=== PATIENT | male | born 1980 ===

== ENCOUNTER 2020-10-13 00:58 | Emergency (ER) | payer SELFPAY ==
[2020-10-13] MEDS ORDERED: TETANUS & DIPHTHERIA TOX,ADULT 0.5 ML VIAL ONE (02:43)
[2020-10-13] MEDS ORDERED: LIDOCAINE 1% MPF 30 ML VIAL ONE (03:17)
[2020-10-13] MEDS ORDERED: LIDOCAINE 1% MPF 5 ML VIAL ONE (03:19)
--- NOTE | 2020-10-13 06:38 | EDPHYS ---
Physician Documentation [facility] Name: Yusuf Butts Age: 40 yrs Sex: Male : 1980 Arrival Date: 10/13/2020 Time: 01:00 Bed 30 Private MD: ED Physician Wilfredo Wilson HPI: 10/13 02:49 This 40 yrs old Male presents to ER via Ambulatory with complaints of Laceration To [facility], Foot Injury. 02:49 The patient has a laceration related to: a puncture wound broken glass, occurred at [facility], and The type of wound is a puncture. The injury was accidental. The laceration(s) is(are) located on the dorsum of right foot. Onset: The symptoms/episode began/occurred last night. Associated signs and symptoms: Pertinent negatives: deformity, dizziness, heavy bleeding, loss of consciousness, numbness distal to injury. Historical: - Allergies: 01:13 No Known Allergies; lp1 - Home Meds: 01:13 None [Active]; lp1 - PMHx: 01:13 None; lp1 - PSHx: 01:13 None; lp1 - Immunization history:: Adult Immunizations up to date, Last tetanus immunization: up to date. - Social history:: Smoking status: Patient denies any tobacco usage or history of. ROS: 02:49 Constitutional: Negative for fever, chills, and weight loss, Eyes: Negative for injury, 7 pain, redness, and discharge, ENT: Negative for injury, pain, and discharge, Neck: Negative for injury, pain, and swelling, Cardiovascular: Negative for chest pain, palpitations, and edema, Respiratory: Negative for shortness of breath, cough, wheezing, and pleuritic chest pain, Abdomen/GI: Negative for abdominal pain, nausea, vomiting, diarrhea, and constipation, Back: Negative for injury and pain, : Negative for injury, bleeding, discharge, and swelling, Neuro: Negative for headache, weakness, numbness, tingling, and seizure, Psych: Negative for depression, anxiety, suicide ideation, homicidal ideation, and hallucinations, Allergy/Immunology: Negative for hives, rash, and allergies, Endocrine: Negative for neck swelling, polydipsia, polyuria, polyphagia, and marked weight changes, Hematologic/Lymphatic: Negative for swollen nodes, abnormal bleeding, and unusual bruising. Exam: 02:49 Constitutional: This is a well developed, well nourished patient who is awake, alert, mh7 and in no acute distress. Head/Face: Normocephalic, atraumatic. Eyes: Pupils equal round and reactive to light, extra-ocular motions intact. Lids and lashes normal. Conjunctiva and sclera are non-icteric and not injected. Cornea within normal limits. Periorbital areas with no swelling, redness, or edema. Neck: Trachea midline, no thyromegaly or masses palpated, and no cervical lymphadenopathy. Supple, full range of motion without nuchal rigidity, or vertebral point tenderness. No Meningismus. Chest/axilla: Normal chest wall appearance and motion. Nontender with no deformity. No lesions are appreciated. Cardiovascular: Regular rate and rhythm with a normal S1 and S2. No gallops, murmurs, or rubs. Normal PMI, no JVD. No pulse deficits. Respiratory: Lungs have equal breath sounds bilaterally, clear to auscultation and percussion. No rales, rhonchi or wheezes noted. No increased work of breathing, no retractions or nasal flaring. Abdomen/GI: Soft, non-tender, with normal bowel sounds. No distension or tympany. No guarding or rebound. No evidence of tenderness throughout. Back: No spinal tenderness. No costovertebral tenderness. Full range of motion. Neuro: Awake and alert, GCS 15, oriented to person, place, time, and situation. Cranial nerves II-XII grossly intact. Motor strength 5/5 in all extremities. Sensory grossly intact. Cerebellar exam normal. Normal gait. Psych: Awake, alert, with orientation to person, place and time. Behavior, mood, and affect are within normal limits. 06:32 Musculoskeletal/extremity: Extremities: noted in the dorsum of right foot: laceration, mh7 ROM: intact in all extremities, Circulation is intact in all extremities. Pulses: are normal with no appreciated deficits, Perfusion: the patient is normally perfused throughout, Perfusion: the extremity is normally perfused throughout, Calf tenderness, is absent, Edema, is not appreciated, Sensation intact. Compartment Syndrome exam of affected extremity: is normal. no pain, no numbness, no tingling, no sensation deficit, no palor, no weak pulses, Joints: All joints appear normal with full range of motion. Tendon exam: 06:33 Musculoskeletal/extremity: Tendon exam: specific tendon testing normal through active mh7 and passive range of motion 06:33 Skin: injury, laceration(s), the wound is approximately 3.0 cm(s), with a depth of 0.5 cm(s), of the dorsum of right foot. Vital Signs: 01:13 BP 140 / 90; Pulse 85; Resp 16; Temp 98.1(TE); Pulse Ox 98% on R/A; Weight 95.25 kg lp1 (R); Height 5 ft. 11 in. (180.34 cm); Pain 1/10; 03:00 BP 135 / 86; Pulse 76; Resp 16; Pulse Ox 100% on R/A; rv 04:00 BP 131 / 88; Pulse 78; Resp 17; Pulse Ox 100% on R/A; rv 06:00 BP 136 / 76; Pulse 71; Resp 16; Pulse Ox 100% on R/A; rv 01:13 Body Mass Index 29.29 (95.25 kg, 180.34 cm) lp1 Laceration: 06:33 Wound Repair of 3.0cm ( 1.2in ) subcutaneous laceration to dorsum of right foot. Distal mh7 neuro/vascular/tendon intact. Anesthesia: Local anesthetic administered with 4 mls of 1% lidocaine. Wound prep: Extensive cleansing with hibiclenz by nurse, Wound irrigation with saline by nurse, Wound explored extensively, Copious irrigation. Skin closed with 7 4-0 Prolene using simple sutures and sterile technique. Dressed with non-adherent dressing. Patient tolerated well. MDM: 06:33 Differential diagnosis: superficial laceration, tendon injury, vascular injury. Data 7 reviewed: vital signs, nurses notes, radiologic studies, plain films. Data interpreted: Pulse oximetry: on room air is 98 %. Interpretation: normal. Counseling: I had a detailed discussion with the patient and/or guardian regarding: the historical points, exam findings, and any diagnostic results supporting the discharge/admit diagnosis, the presence of at least one elevated blood pressure reading (>120/80) during this emergency department visit, radiology results, the need for outpatient follow up, to return to the emergency department if symptoms worsen or persist or if there are any questions or concerns that arise at home. Response to treatment: the patient's symptoms have markedly improved after treatment. 06:37 Patient medically screened. mh7 10/13 01:15 Order name: Foot Right 2 View XRAY lp1 Administered Medications: 02:32 Drug: Tetanus-Diphtheria Toxoid Adult 0.5 ml {[employer] Support Specialist: [employer]. Exp: rv 10/13/2021. Lot #: [id number]. } Route: IM; Site: right deltoid; 07:08 Follow up: Response: No adverse reaction rv Disposition: 10/13/20 06:37 Discharged to Home. Impression: Foot Laceration, Right. - Condition is Stable. - Discharge Instructions: Laceration Care, Adult, [place]. - Prescriptions for Keflex 500 mg Oral Capsule - take 1 capsule by ORAL route every 8 hours for 7 days; 21 capsule. - Medication Reconciliation Form, Thank You Letter, Antibiotic Education, Prescription Opioid Use form. - Follow up: Private Physician; When: 1 - 2 days; Reason: Wound Recheck, Worsening of condition, Recheck today's complaints, Continuance of care, Re-evaluation by your physician. Follow up: Moe Elizalde DPM; When: 1 - 2 days; Reason: Wound Recheck, Worsening of condition, Recheck today's complaints. - Problem is new. - Symptoms have improved. Signatures: Dispatcher [employer] EDMS Deedee Vicotr RN RN lp1 Deepak Sterling RN RN rv Wilfredo Wilson MD MD mh7 Corrections: (The following items were deleted from the chart) 07:08 06:37 10/13/2020 06:37 Discharged to Home. Impression: Foot Laceration, Right. rv Condition is Stable. Forms are Medication Reconciliation Form, Thank You Letter, Antibiotic Education, Prescription Opioid Use. Follow up: Private Physician; When: 1 - 2 days; Reason: Wound Recheck, Worsening of condition, Recheck today's complaints, Continuance of care, Re-evaluation by your physician. Follow up: Moe Elizalde; When: 1 - 2 days; Reason: Wound Recheck, Worsening of condition, Recheck today's complaints. Problem is new. Symptoms have improved. mh7
--- NOTE | 2020-10-13 06:38 | ER ---
Nurse's Notes [facility] Name: Yusuf Butts Age: 40 yrs Sex: Male : 1980 Arrival Date: 10/13/2020 Time: 01:00 Bed 30 Private MD: Diagnosis: Foot Laceration, Right Presentation: 10/13 01:11 Chief complaint: Patient states: Reports taking Pyrex glass jaffe out of oven and glass lp1 shattered, laceration to top of right foot; bleeding controlled. Coronavirus screen: Client denies travel out of the [place] in the last 14 days. At this time, the client does not indicate any symptoms associated with coronavirus-19. Ebola Screen: No symptoms or risks identified at this time. Risk Assessment: Do you want to hurt yourself or someone else? Patient reports no desire to harm self or others. Onset of symptoms was October 13, 2020 at 00:30. 01:11 Method Of Arrival: Ambulatory lp1 01:11 Acuity: SCOTT 4 lp1 01:13 Complicating Factors: shattered glass. Initial Sepsis Screen: Does the patient meet any lp1 2 criteria? No. Patient's initial sepsis screen is negative. Does the patient have a suspected source of infection? No. Patient's initial sepsis screen is negative. Historical: - Allergies: 01:13 No Known Allergies; lp1 - Home Meds: 01:13 None [Active]; lp1 - PMHx: 01:13 None; lp1 - PSHx: 01:13 None; lp1 - Immunization history:: Adult Immunizations up to date, Last tetanus immunization: up to date. - Social history:: Smoking status: Patient denies any tobacco usage or history of. Screenin:15 Abuse screen: Denies threats or abuse. Denies injuries from another. Nutritional lp1 screening: No deficits noted. Tuberculosis screening: No symptoms or risk factors identified. Fall Risk None identified. Assessment: 01:52 General: Appears comfortable, Behavior is calm, cooperative. Pain: Complains of pain in rv right foot. Neuro: Level of Consciousness is awake, alert, obeys commands, Oriented to person, place, time, situation. Cardiovascular: Patient's skin is warm and dry. Respiratory: Airway is patent Respiratory effort is even, unlabored. Derm:. Musculoskeletal: Range of motion: intact in all extremities, Swelling absent. Injury Description: Laceration sustained to dorsum of right foot is clean, 0.5 to 2.5 cm long, not bleeding, was sustained less than 30 minutes ago. is bleeding a small amount. 03:46 Reassessment: Patient appears in no apparent distress at this time. awaiting for rr5 provider. 04:41 Reassessment: Patient and/or family updated on plan of care and expected duration. Pain ea level reassessed. Patient is alert, oriented x 3, equal unlabored respirations, skin warm/dry/pink. Vital Signs: 01:13 BP 140 / 90; Pulse 85; Resp 16; Temp 98.1(TE); Pulse Ox 98% on R/A; Weight 95.25 kg lp1 (R); Height 5 ft. 11 in. (180.34 cm); Pain /; 03:00 BP 135 / 86; Pulse 76; Resp 16; Pulse Ox 100% on R/A; rv 04:00 BP 131 / 88; Pulse 78; Resp 17; Pulse Ox 100% on R/A; rv 06:00 BP 136 / 76; Pulse 71; Resp 16; Pulse Ox 100% on R/A; rv 01:13 Body Mass Index 29.29 (95.25 kg, 180.34 cm) lp1 ED Course: 01:00 Patient arrived in ED. bp1 01:12 Triage completed. lp1 01:12 Arm band placed on. lp1 01:37 Deepak Sterling RN is Primary Nurse. rv 01:37 Wilfredo Wilson MD is Attending Physician. mh7 01:53 Patient has correct armband on for positive identification. rv 01:53 Patient did not have IV access during this emergency room visit. rv 01:53 Wound care: to laceration located on dorsum of right foot was cleaned with Hibiclens, rv irrigated with normal saline, Patient tolerated well. 02:22 Foot Right 2 View XRAY In Process Unspecified. EDMS 06:36 Moe Elizalde DPM is Referral Physician. 7 07:06 Assist provider with laceration repair on dorsum of right foot that was 2.5 cm. or less rv using sutures. Set up tray. Performed by Wilfredo Wilson MD Dressed with 4X4s, Patient tolerated well. Administered Medications: 02:32 Drug: Tetanus-Diphtheria Toxoid Adult 0.5 ml {[employer] Loader: [employer]. Exp: rv 10/13/2021. Lot #: [id number]. } Route: IM; Site: right deltoid; 07:08 Follow up: Response: No adverse reaction rv Outcome: 06:37 Discharge ordered by MD. weller 07:06 Discharged to home ambulatory, with family. rv 07:06 Condition: good 07:06 Discharge instructions given to patient, Instructed on discharge instructions, follow up and referral plans. medication usage, wound care, Demonstrated understanding of instructions, follow-up care, medications, Prescriptions given X 1. 07:08 Patient left the ED. rv Signatures: Dispatcher [employer] EDMS Deedee Victor RN RN lp1 Raquel Roberts RN Deepak Kwok ea RN Emeterio Banerjee RN RN rr5 Gabriela Herrera Maurice, MD MD 7 Corrections: (The following items were deleted from the chart) 01:15 01:13 BP 140 / 90; Pulse 85bpm; Pulse Ox 98% RA; Temp 98.1F Temporal; 95.25 kg lp1 Reported; Height 5 ft. 11 in.; BMI: 29.2; Pain 1/10; lp1
[2020-10-13 07:14] VITALS: TEMP 98.1
[2020-10-13 07:15] VITALS: O2SAT 100
[2020-10-13 07:18] VITALS: BP 136/76
--- NOTE | 2020-10-13 21:45 | RAD REPORT ---
EXAM DESCRIPTION: RAD - Foot Right 2 View - 10/13/2020 2:23 am CLINICAL HISTORY: 40 years, Male, PAIN COMPARISON: None. FINDINGS: 3 X-ray views of the Right foot (frontal lateral and oblique) were performed. No areas of acute bony injuries were demonstrated. No gross articular abnormality is identified. There are no gross intraosseous lesions. No periosteal reaction were seen. No radiopaque foreign body is identified. Small area of soft tissue gap is noted within the dorsum of the soft tissue proxi mal mid metatarsal area. IMPRESSION: NO EVIDENCE FOR FRACTURE OR DISLOCATION AT THE RIGHT FOOT. Electronically signed by: Anand Shultz MD 10/13/2020 2:33 AM CDT Due to temporary technical issues with the PACS/Fluency reporting system, reports are being signed by the in house radiologists without review as a courtesy to insure prompt reporting. The interpreting radiologist is fully responsible for the content of the report.
== END 2020-10-13 07:08 | disposition home or self-care (01) ==
LOC: ER 00:58
PROC: 0HQMXZZ Repair Right Foot Skin, External Approach (ICD-10-PCS; principal; 2020-10-13)
DX: S91.311A Laceration without foreign body, right foot, initial encounter (principal); W25.XXXA Contact with sharp glass, initial encounter; Y92.009 Unspecified place in unspecified non-institutional (private) residence as the place of occurrence of the external cause
CPT/HCPCS: 90471; 90714; 99284